=== PATIENT | female | born 1950 | race Caucasian/White ===

== ENCOUNTER 2018-02-11 17:10 | Emergency (ER) | END 2018-02-11 21:17 | disposition home or self-care (01) ==

== ENCOUNTER 2018-08-11 07:02 | Emergency (ER) | payer MEDICAID ==
[~2018-08-11] VITALS: Ht 160 cm; Wt 75.0 kg
[~2018-08-11 07:02] MED LIST: DOCU-159 PO; IBUP-1542 PO; LANT3I SC; MTF1000T PO; NAPR-985 PO; ONDA4TAB8 PO; SIMV20TA PO
[2018-08-11 07:08] VITALS: BP 157/73; PULSE 85; RESP 18; Ht 160 cm; Wt 75.0 kg
[2018-08-11] MEDS ORDERED: PROM6.2515 PO (08:08)
[2018-08-11] MEDS ORDERED: BENZ-6 PO (08:08)
--- NOTE | 2018-08-11 09:32 | ERD ---
ER Documentation Chief Complaint Chief Complaint cough x 4 days denies fever states has cwp during coughing HPI 68-year-old female presenting with cough x4 days. She states is a dry cough but she has some chest wall with coughing. Denies hemoptysis. Denies shortness of breath. Has not taken medications for her symptoms. Medical history is diabetes. NKDA. Surgical history denies. Social history denies ROS All systems reviewed and are negative except as per history of present illness. Medications Home Meds Active Scripts Promethazine Hcl* (Promethazine Hcl* Syrup) 6.25 Mg/5 Ml Syrup, 6.25 MG PO Q6H PRN for COUGH, #100 ML Prov:VINNIE CASTRO PA-C 08/11/18 Benzonatate* (Tessalon Perle*) 100 Mg Capsule, 100 MG PO Q8H PRN for COUGH, #30 CAP Prov:VINNIE CASTRO PA-C 08/11/18 Naproxen* (Naprosyn*) 500 Mg Tablet, 500 MG PO BID PRN for PAIN AND/OR INFLAMMATION, #30 TAB Prov:ERMELINDA GAGE MD 02/11/18 Ondansetron Hcl* (Zofran*) 4 Mg Tablet, 4 MG PO Q8H PRN for NAUSEA AND/OR VOMITING, #30 TAB Prov:ERMELINDA GAGE MD 02/11/18 Reported Medications Ibuprofen* (Ibuprofen*) 600 Mg Tablet, 300 MG PO Q6H PRN for PAIN, TAB 02/11/18 Insulin Glargine* (Lantus*) 100 Unit/Ml Soln, 1 UNIT SC QHS, #1 VIAL 02/11/18 Metformin* (Glucophage*) 1,000 Mg Tablet, 1000 MG PO WITH BREAKFAST DINNE for DIABETES, #30 TAB 02/11/18 Docusate Sodium* (Docusate Sodium*) 100 Mg Capsule, 100 MG PO BID, #60 CAP 02/11/18 Simvastatin* (Zocor*) 20 Mg Tablet, 20 MG PO QHS, #30 TAB 02/11/18 Allergies Allergies: Coded Allergies: No Known Allergy (Unverified , 02/11/18) PMhx/Soc Hx Alcohol Use: No Hx Substance Use: No Hx Tobacco Use: No Smoking Status: Never smoker FmHx Family History: No diabetes, No coronary disease, No other Physical Exam Vitals Vital Signs Date Temp Pulse Resp B/P (MAP) Pulse Ox O2 O2 Flow FiO2 Time Delivery Rate 08/11/18 98.6 85 18 157/73 98 07:08 (101) Physical Exam GENERAL: The patient is well-appearing, well-nourished, in no acute distress HEENT: Atraumatic. Conjunctivae are pink. Pupils equal, round, and reactive to light. There is no scleral icterus. Tympanic membranes clear bilaterally. Oropharynx clear. NECK: C-spine is soft and supple. There is no meningismus. There is no cervical lymphadenopathy. CHEST: Clear to auscultation bilaterally. There are no rales, wheezes or rhonchi. HEART: Regular rate and rhythm. No murmurs, clicks, rubs or gallops. Procedures/MDM DIAGNOSTIC IMAGING REPORT Patient: FENG IRIZARRY : 1950 Age: 68 Sex: F MR #: [id number] DOS: 08/11/18 0723 Ordering MD: KEMI CASTRO PA-C Location: [facility] Room/Bed: PROCEDURE: XR Chest. CLINICAL INDICATION: Cough TECHNIQUE: Single frontal view of the chest was obtained COMPARISON: None FINDINGS: The heart and mediastinum are within normal limits. The lungs are clear. There is no pleural effusion or pneumothorax. RPTAT: AA IMPRESSION: No acute disease. MDM: 68-year-old female presenting with cough. I have low suspicion for pneumonia. I have low suspicion for cardiac abnormality. I have low suspicion for respiratory distress or hypoxia. Patient is discharged with strict ER precautions and told to follow-up with primary care within 1 to 2 days for close evaluation. Patient is told if symptoms change or worsen to return immediately to the ER. All questions answered at discharge Departure Diagnosis: Primary Impression: Cough Condition: Stable Patient Instructions: Cough, Chronic, Uncertain Cause (Child) Referrals: COMMUNITY CLINICS YOU HAVE RECEIVED A MEDICAL SCREENING EXAM AND THE RESULTS INDICATE THAT YOU DO NOT HAVE A CONDITION THAT REQUIRES URGENT TREATMENT IN THE EMERGENCY DEPARTMENT. FURTHER EVALUATION AND TREATMENT OF YOUR CONDITION CAN WAIT UNTIL YOU ARE SEEN IN YOUR DOCTORS OFFICE WITHIN THE NEXT 1-2 DAYS. IT IS YOUR RESPONSIBILITY TO MAKE AN APPOINTMENT FOR FOLOW-UP CARE. IF YOU HAVE A PRIMARY DOCTOR --you should call your primary doctor and schedule an appointment IF YOU DO NOT HAVE A PRIMARY DOCTOR YOU CAN CALL OUR PHYSICIAN REFERRAL HOTLINE AT IF YOU CAN NOT AFFORD TO SEE A PHYSICIAN YOU CAN CHOSE FROM THE FOLLOWING [facility] CLINICS [facility] [address] [facility] [address] [facility] [facility] [address] [facility] [address] [facility]. [facility] [address] [facility] [facility]. [address] Additional Instructions: FOLLOW UP WITH YOUR PRIMARY CARE PHYSICIAN TOMORROW.Return to this facility if you are not improving as expected. VINNIE CASTRO PA-C August 11, 2018 09:32
== END 2018-08-11 08:38 | disposition home or self-care (01) ==
LOC: FTE 07:02
DX: R05 Cough (principal)
CPT/HCPCS: 71045; Z7502

== ENCOUNTER 2019-02-02 06:43 | Emergency (ER) | payer MEDICAID ==
[~2019-02-02] VITALS: Ht 160 cm; Wt 75.0 kg
[~2019-02-02 06:43] MED LIST changes: +ATOR20TA65 PO; -DOCU-159 PO; +DOCU250C58 PO; +ENAL10TA ORAL; +FERR325T17 PO; +GABA100C14 PO; +HYDR-3605 PO; -IBUP-1542 PO; +LISI-471 PO; +METF100010 PO; -MTF1000T PO; -NAPR-985 PO; +NATE60TA PO; -ONDA4TAB8 PO; -SIMV20TA PO
[2019-02-02 06:45] VITALS: BP 104/53; PULSE 74; RESP 18; Ht 160 cm; Wt 75.0 kg
== END 2019-02-02 08:01 | disposition home or self-care (01) ==
LOC: FTE 06:43
DX: Z48.01 Encounter for change or removal of surgical wound dressing (principal); I10 Essential (primary) hypertension; E11.9 Type 2 diabetes mellitus without complications; Z79.4 Long term (current) use of insulin
CPT/HCPCS: 99281